=== PATIENT | female | born 1950 | race Caucasian/White ===

== ENCOUNTER → 2016-12-26 | Outpatient (CLI) | payer OTHER | LOC: FIMAGING 13:53 | PROVIDERS: ATTEND Obstetrics & Gynecology | DX: Z12.31 Encounter for screening mammogram for malignant neoplasm of breast (principal); Z80.3 Family history of malignant neoplasm of breast | CPT/HCPCS: G0202 ==

== ENCOUNTER 2017-11-30 21:02 | Emergency (ER) | payer OTHER ==
[2017-11-30] MEDS ORDERED: NS 1,000 ML IV ONE (22:00)
--- NOTE | 2017-11-30 22:02 | EDPHY ---
H & P Stated Complaint: spasm/pain mid back and across abd, x2 hrs Time Seen by Provider: 11/30/17 21:52 HPI/ROS: Chief Complaint: Back pain, abdominal pain HPI: 67-year-old woman began having mid back pain which radiated around to her abdomen about 2-3 hours ago. At worst the pain is a 6/10. She did take some Aleve 2 hr ago is significantly improved. Feels a little bit similar to when she had a gallbladder attack but she has since had a cholecystectomy. No nausea vomiting or diarrhea. No urinary urgency or frequency. She did start on a medication a week ago for overactive bladder. No fevers or chills. She has is worse when she laid down and could not find a position of comfort. Does not hurt to move around. No numbness or weakness. She did sit at her desk writing for several hours this morning. She also did clear up some leads but did not do excessive amounts of bending or lifting. No falls. ROS: 10 systems were reviewed and were negative except those elements noted in the HPI. PMH: Overactive bladder Social History: No smoking, no alcohol, no recreational drug use Family History: non-contributory Physical Exam: Gen: Awake, Alert, No Distress HEENT: Nose: no rhinorrhea Eyes: PERRLA, EOMI Mouth: Moist mucosa Neck: Supple, no JVD Chest: nontender, lungs clear to auscultation Heart: S1, S2 normal, no murmur Abd: Soft, very mild right upper quadrant tenderness without guarding, abdomen otherwise benign Back: Mild right, no midline tenderness Ext: no edema, non-tender Skin: no rash Neuro: CN II-XII intact, Sensation grossly intact, Strength 5/5 in bilateral upper and lower extremities - Personal History Current Tetanus Diphtheria and Acellular Pertussis (TDAP): Unsure Tetanus Vaccine Date: <10 YRS - Medical/Surgical History Hx Asthma: No Hx Chronic Respiratory Disease: No Hx Diabetes: No Hx Cardiac Disease: No Hx Renal Disease: No Hx Cirrhosis: No Hx Alcoholism: No Hx HIV/AIDS: No Hx Splenectomy or Spleen Trauma: No Other PMH: Left hip replacement, gallbladder, right ankle, right forearm - Social History Smoking Status: Never smoked Constitutional: Initial Vital Signs Temperature (C) 36.3 C 11/30/17 21:15 Heart Rate 76 11/30/17 21:15 Respiratory Rate 18 11/30/17 21:15 Blood Pressure 161/91 H 11/30/17 21:15 O2 Sat (%) 97 11/30/17 21:15 O2 Delivery Mode Room Air Allergies/Adverse Reactions: benzoin Allergy (Severe, Verified 11/30/17 21:13) Rash codeine [Codeine] Allergy (Intermediate, Verified 11/30/17 21:13) UPSET STOMACH Sulfa (Sulfonamide Antibiotics) Allergy (Mild, Verified 11/30/17 21:13) Rash Home Medications: Medication Instructions Recorded Estradiol [Estradiol 1 MG (RX)] 1 mg PO DAILY 06/26/12 Glucosam/Chondr/Collagn/Hyalur 1 each PO DAILY 06/26/12 [Glucosamine & Chondroitin Cap] Multivitamins [Tab-A-Moi] 1 each PO DAILY 06/26/12 Naproxen Sodium [Aleve] 2 tab PO DAILY 06/26/12 medroxyPROGESTERone [Provera 2.5 5 mg PO DAILY 06/26/12 mg (RX)] Myrbetriq 11/30/17 Medical Decision Making - Diagnostics Imaging Results: Imaging Impressions Abdomen/Pelvis CT 11/30/17 23:07 Impression: 1. Nonobstructing right nephrolithiasis. 2. Constipation, most prominent in the proximal colon. 3. Diverticulosis without evidence of diverticulitis. 4. Additional findings as above. Findings discussed with Mario Garcia MD 11/30/2017 at 23:26. Attention: This CT examination is specifically designed to evaluate patients who are clinically suspected of having acute obstructive uropathy. This examination does not use radiographic contrast and provides only a limited evaluation of the abdomen, pelvis and retroperitoneum. If there is further clinical suspicion for pathological conditions other than obstructive uropathy, a complete CT evaluation of the abdomen and pelvis utilizing intravenous and enteric contrast should be considered. Imaging: Discussed imaging studies w/ exhibit cleaner Radiologist ED Course/Re-evaluation: 67-year-old woman with back pain and abdominal pain. She has a soft benign abdomen. She does have a mild elevation in her lipase suggestive of a mild pancreatitis. She does not have risk factors for this. Urinalysis did show 1+ blood however CT scan of the abdomen pelvis showed some constipation but otherwise no acute process. Patient's pain has improved dramatically after the Advil that she took. She has required no medicines here. She is otherwise well in appearance. Will discharge with follow-up with primary care physician for further evaluation. - Data Points Laboratory Results: Laboratory Results 11/30/17 22:15 11/30/17 22:15 11/30/17 11/30/17 11/30/17 22:50 22:15 22:15 WBC 10.99 10^3/uL H 10^3/uL (3.80-9.50) RBC 4.27 10^6/uL 10^6/uL (4.18-5.33) Hgb 13.7 g/dL g/dL (12.6-16.3) Hct 40.9 % % (38.0-47.0) MCV 95.8 fL fL (81.5-99.8) MCH 32.1 pg pg (27.9-34.1) MCHC 33.5 g/dL g/dL (32.4-36.7) RDW 12.2 % % (11.5-15.2) Plt Count 247 10^3/uL 10^3/uL (150-400) MPV 9.8 fL fL (8.7-11.7) Neut % (Auto) 61.3 % % (39.3-74.2) Lymph % (Auto) 26.3 % % (15.0-45.0) [place] % (Auto) 7.6 % % (4.5-13.0) Eos % (Auto) 3.9 % % (0.6-7.6) Baso % (Auto) 0.6 % % (0.3-1.7) Nucleat RBC Rel Count 0.0 % % (0.0-0.2) Absolute Neuts (auto) 6.74 10^3/uL H 10^3/uL (1.70-6.50) Absolute Lymphs (auto) 2.89 10^3/uL 10^3/uL (1.00-3.00) Absolute Monos (auto) 0.83 10^3/uL H 10^3/uL (0.30-0.80) Absolute Eos (auto) 0.43 10^3/uL H 10^3/uL (0.03-0.40) Absolute Basos (auto) 0.07 10^3/uL 10^3/uL (0.02-0.10) Absolute Nucleated RBC 0.00 10^3/uL 10^3/uL (0-0.01) Immature Gran % 0.3 % % (0.0-1.1) Immature Gran # 0.03 10^3/uL 10^3/uL (0.00-0.10) Sodium 139 mEq/L mEq/L (135-145) Potassium 3.7 mEq/L mEq/L (3.3-5.0) Chloride 106 mEq/L mEq/L (97-110) Carbon Dioxide 24 mEq/l mEq/l (22-31) Anion Gap 9 mEq/L mEq/L (6-14) BUN 20 mg/dL mg/dL (7-23) Creatinine 0.7 mg/dL mg/dL (0.6-1.0) Estimated GFR > 60 Glucose 119 mg/dL H mg/dL (70-100) Calcium 9.5 mg/dL mg/dL (8.5-10.4) Total Bilirubin 0.3 mg/dL mg/dL (0.1-1.4) AST 30 IU/L IU/L (14-46) ALT 28 IU/L IU/L (9-52) Alkaline Phosphatase 90 IU/L IU/L (38-126) Total Protein 7.2 g/dL g/dL (6.3-8.2) Albumin 3.9 g/dL g/dL (3.5-5.0) Lipase 662 IU/L H IU/L (23-300) Urine Color PALE YELLOW Urine Appearance CLEAR Urine pH 7.0 (5.0-7.5) Ur Specific [place] 1.004 (1.002-1.030) Urine Protein NEGATIVE (NEGATIVE) Urine Ketones NEGATIVE (NEGATIVE) Urine Blood 1+ H (NEGATIVE) Urine Nitrate NEGATIVE (NEGATIVE) Urine Bilirubin NEGATIVE (NEGATIVE) Urine Urobilinogen NEGATIVE EU EU (0.2-1.0) Ur Leukocyte Esterase NEGATIVE (NEGATIVE) Urine RBC 1-3 /hpf /hpf (0-3) Urine WBC 1-3 /hpf /hpf (0-3) Ur Epithelial Cells TRACE /lpf /lpf (NONE-1+) Urine Mucus TRACE /lpf /lpf (NONE-1+) Urine Glucose NEGATIVE (NEGATIVE) Medications Given: Discontinued Medications Sodium Chloride (Ns) 1,000 mls @ 0 mls/hr IV ONCE ONE; Wide Open PRN Reason: Protocol Stop: 11/30/17 22:01 Last Admin: 11/30/17 22:21 Dose: 1,000 mls Departure - Departure Disposition: Home, Routine, Self-Care Clinical Impression: Back pain, Pancreatitis Condition: Good Instructions: Back Pain (ED) Additional Instructions: Take ibuprofen, 600 mg every 8 hr. You may alternate with acetaminophen, 1000 mg every 8 hr. You have a mild elevation in your pancreatic enzymes suggesting a mild pancreatitis. Follow up with primary care physician in 2-3 days for further evaluation. Return to the emergency department for increasing pain, fevers or chills, uncontrolled nausea vomiting, or any other concerns. Referrals: JOSUE OBANDO [Primary Care Provider] - As per Instructions
[2017-11-30 22:29] LABS: PLATELET COUNT 247 10^3/uL (150-400)
[2017-11-30 23:40] VITALS: BP 150/85
== END 2017-12-01 00:11 | disposition home or self-care (01) ==
DX: K85.90 Acute pancreatitis without necrosis or infection, unspecified (principal); N20.0 Calculus of kidney; K59.00 Constipation, unspecified; K57.30 Diverticulosis of large intestine without perforation or abscess without bleeding; N32.81 Overactive bladder; E86.9 Volume depletion, unspecified; Z90.49 Acquired absence of other specified parts of digestive tract

== ENCOUNTER 2018-04-16 05:46 | Observation (INO) | payer OTHER ==
[2018-04-16] MEDS ORDERED: LR 1,000 ML IV ONE (06:08)
[2018-04-16] MEDS ORDERED: BUPIVACAINE/EPI 0.5% 30 ML SDV ONE (06:27)
[2018-04-16] MEDS ORDERED: MIDAZOLAM 2 MG/2 ML VIAL IVP ONE (06:49)
--- NOTE | 2018-04-16 06:49 | PDANEPAE ---
ANE History of Present Illness DaVinci assist sacrocolpopexy ANE Past Medical History - Cardiovascular History Hx Hypertension: No Hx Arrhythmias: No Hx Chest Pain: No Hx Coronary Artery / Peripheral Vascular Disease: No Hx CHF / Valvular Disease: No Hx Palpitations: No - Pulmonary History Hx COPD: No Hx Asthma/Reactive Airway Disease: No Hx Recent Upper Respiratory Infection: No Hx Oxygen in Use at Home: No Hx Sleep Apnea: No Sleep Apnea Screening Result - Last Documented: Negative - Neurologic History Hx Cerebrovascular Accident: No Hx Seizures: No Hx Dementia: No - Endocrine History Hx Diabetes: No - Renal History Hx Renal Disorders: Yes Renal History Comment: bladder prolapse currently. irritable bladder - Liver History Hx Hepatic Disorders: No - Neurological & Psychiatric Hx Hx Neurological and Psychiatric Disorders: No - Cancer History Hx Cancer: No - Congenital Disorder History Hx Congenital Disorders: No - GI History Hx Gastrointestinal Disorders: Yes Gastrointestinal History Comment: constipation after surgery. rectocele - Other Health History Other Health History: wears glasses - Chronic Pain History Chronic Pain: Yes (lower back) - Surgical History Prior Surgeries: 07/29/12 left SHARRI with Gildardo. nyla. right ankle ligament replacement. right forearm ligament repair ANE Review of Systems Review of systems is: negative Review of Systems: - Exercise capacity METS (RN): 4 METS ANE Patient History - Allergies Allergies/Adverse Reactions: benzoin Allergy (Verified 04/03/18 10:24) Rash codeine [Codeine] Allergy (Verified 04/03/18 10:24) UPSET STOMACH Sulfa (Sulfonamide Antibiotics) Allergy (Verified 04/03/18 10:24) Rash - Home Medications Home medications: home medication list seen and reviewed Home Medications: Estradiol [Estradiol 1 MG (RX)] 1 mg PO DAILY 06/26/12 [Last Taken 04/16/18] Cholecalciferol Vit D3 [Vitamin D3 (*)] 1,000 units PO DAILY 03/27/18 [Last Taken 04/09/18] Docusate Sodium [Colace 100 MG (*)] 100 mg PO DAILY 03/27/18 [Last Taken ] Estrogens,Conjugated [Premarin Vaginal (*)] 1 yuliana VG .2WK/WEEK 03/27/18 [Last Taken 04/16/18] Ferrous Sulfate [Ferrous Sulf 325 MG (*)] 325 mg PO DAILY 03/27/18 [Last Taken 04/09/18] Fluticasone Nasal [Flonase Nasal [employer] (RX)] 2 sprays EACHNARE DAILY PRN [Last Taken 04/15/18] Herbals/Supplements -Info Only 1 ea PO DAILY 03/27/18 [Last Taken 04/09/18] Naproxen Sodium [Aleve 220 MG (*)] 440 mg PO DAILY PRN 03/27/18 [Last Taken ] Progesterone Cmpd 100mg Caps 100 mg PO DAILY 03/27/18 [Last Taken 04/16/18] Myrbetriq 04/16/18 [Last Taken 04/16/18] - NPO status NPO Since - Liquids (Date): 04/16/18 NPO Since - Liquids (Time): 04:45 NPO Since - Solids (Date): 04/15/18 NPO Since - Solids (Time): 20:00 - Anes Hx Anes Hx: post operative nausea - Smoking Hx Smoking Status: Never smoked - Family Anes Hx Family Anes Hx: none Family Hx Anesthesia Complications: none ANE Labs/Vital Signs - Vital Signs Vital Signs: reviewed preoperatively; see RN documention for details Blood Pressure: 146/85 Heart Rate: 82 Respiratory Rate: 15 O2 Sat (%): 96 Height: 167.64 cm Weight: 62.596 kg ANE Physical Exam - Airway Neck exam: FROM Mallampati Score: Class 1 Mouth exam: normal dental/mouth exam - Pulmonary Pulmonary: no respiratory distress - Cardiovascular Cardiovascular: regular rate and rhythym - ASA Status ASA Status: I ANE Anesthesia Plan Anesthesia Plan: general endotracheal anesthesia
--- NOTE | 2018-04-16 07:03 | PDHPUP ---
History & Physical Update H&P update statement: This history and physical update is based on an assessment of the patient which was completed after admission or registration (within 24 hours), but prior to the surgery/procedure. H&P update: H&P reviewed & patient examined, no change in patient's condition since H&P completed
[2018-04-16] MEDS ORDERED: MIDAZOLAM 2 MG/2 ML VIAL ONE (07:04)
[2018-04-16] MEDS ORDERED: ROCURONIUM 50 MG/5 ML VIAL ONE (07:09)
[2018-04-16] MEDS ORDERED: DEXAMETHASONE 4 MG/ML VIAL ONE (07:09)
[2018-04-16] MEDS ORDERED: ONDANSETRON 4 MG/2 ML VIAL ONE ×2 (07:09→10:10)
[2018-04-16] MEDS ORDERED: LIDOCAINE 2% 100 MG/5 ML SYR ONE (07:09)
[2018-04-16] MEDS ORDERED: PROPOFOL 200 MG/20 ML VIAL ONE (07:09)
[2018-04-16] MEDS ORDERED: fentaNYL 250 MCG/5 ML INJ ONE (07:09)
[2018-04-16] MEDS ORDERED: SUGAMMADEX SODIUM 200 MG/2 ML VIAL IVP ONE (07:09)
[2018-04-16] MEDS ORDERED: ceFAZolin 2 GM/DEXTROSE 100 ML IV ONE (07:16)
[2018-04-16] MEDS ORDERED: ceFAZolin 1 GM VIAL ONE ×2 (07:35)
[2018-04-16] MEDS ORDERED: NALOXONE HCL 0.4 MG/ML INJ IVP PRN (08:23)
[2018-04-16] MEDS ORDERED: MEPERIDINE 25 MG/0.5 ML AMP IVP PRN (08:23)
[2018-04-16] MEDS ORDERED: LABETALOL HCL 5 MG/ML 20 ML MDV IVP PRN (08:23)
[2018-04-16] MEDS ORDERED: fentaNYL 100 MCG/2 ML INJ IVP PRN (08:23)
[2018-04-16] MEDS ORDERED: ACETAMINOPHEN 500 MG TAB PO PRN (08:23)
[2018-04-16] MEDS ORDERED: PROMETHAZINE HCL 25 MG/ML INJ IVP PRN ×2 (08:23→09:37)
[2018-04-16] MEDS ORDERED: HYDROCODONE/APAP 5/325 TAB PO PRN ×2 (08:23→09:37)
[2018-04-16] MEDS ORDERED: oxyCODONE IR 5 MG TAB PO PRN (08:23)
[2018-04-16] MEDS ORDERED: HYDROmorphONE/DILAUDID 2 MG/ML INJ IVP PRN (08:23)
--- NOTE | 2018-04-16 08:23 | POSTANESTH ---
Post Anesthetic Evaluation Cardiovascular Status: Normal, Stable, Similar to Pre-Op Cond Respiratory Status: Normal, Stable, Similar to Pre-op Cond. Level of Consciousness/Mental Status: Can Participate in Eval, Mildly Sleepy, Arousable Pain Control: Adequate, Prn Tx Ordered Nausea/Vomiting Control: Adequate, Prn Tx Ordered Complications Possibly Related to Anesthesia: None Noted
[2018-04-16] MEDS ORDERED: fentaNYL 100 MCG/2 ML INJ ONE ×2 (09:27→10:36)
[2018-04-16] MEDS ORDERED: HYDROmorphONE/DILAUDID 1 MG/ML INJ IVP PRN (09:37)
[2018-04-16] MEDS ORDERED: OXYCODONE/APAP 5/325 TAB PO PRN (09:37)
[2018-04-16] MEDS ORDERED: ONDANSETRON DISINTEGRATING 4 MG TAB PO PRN (09:37)
[2018-04-16] MEDS ORDERED: LR 1,000 ML IV SCH (10:00)
[2018-04-16] MEDS: ONDANSETRON 4 MG/2 ML VIAL IVP PRN ×2 (11:58→16:47)
--- NOTE | 2018-04-16 11:58 | GOP ---
[f rep st] OPERATIVE REPORT DATE OF OPERATION: 04/16/2018 SURGEON: Demond Rowe MD HEDIS COORDINATOR: Nikki Fernandez CFA. ANESTHESIA: General. PREOPERATIVE DIAGNOSIS: 1. Cystocele. 2. Rectocele. 3. Uterine prolapse. POSTOPERATIVE DIAGNOSIS: 1. Cystocele. 2. Rectocele. 3. Uterine prolapse. PROCEDURE PERFORMED: 1. Robotic-assisted laparoscopic hysterectomy, bilateral salpingo-oophorectomy. 2. Sacral colpopexy with mesh. 3. Repair of cystocele and rectocele. 4. Cystoscopy. FINDINGS: SPECIMENS: Uterus, bilateral tubes and ovaries. ESTIMATED BLOOD LOSS: Scant. DESCRIPTION OF PROCEDURE: Cristel was taken to the operating room. She was identified. General ane sthesia was administered and found to be adequate. She was placed in the lithotomy position and prep ared and draped in normal sterile fashion. A Gonzalez catheter was placed in her bladder. An 8 mm infraumbilical incision was made with a scalpel. The Veress needle, CO2 gas flowing was adva nced into the peritoneal cavity. The abdomen was then insufflated with carbon dioxide gas. The 8 mm trocar followed by the laparoscope were then inserted. The upper abdomen was unremarkable. Two lat eral ports were placed on either side under direct visualization. She then was placed in Trendelenbu rg position and the da Gabrielle robot docked on the left side. The instruments were brought into the ab dominal cavity under direct visualization. The left round ligament was divided. The anterior leaf of the broad ligament was incised toward the bifurcation of the left common iliac vessels. A window was created posteriorly anterior to the urete r to skeletonize the infundibulopelvic vessels. They were then cauterized and transected. The anter ior broad ligament was then incised over the left uterine vessels and across the cervix. The bladder gently dissected off the cervix and upper vagina. The left uterine vasculature was then cauterized and transected. The exact same procedure was performed on the patient's right side. The uterus was then bivalved to aid in removal through the umbilicus. The uterus and upper 3/4 of the cervix were a mputated from the lower 1/4 of the cervix with the hot roamn. The specimen was placed in the right upper quadrant for later removal. The Colpo-Probe was placed in the vagina. The bladder was further dissected off the anterior vaginal wall down to the level of the bladder neck. The rectovaginal space was then entered and the rectum dissected off the posterior vaginal wall down to the level of the perineal body. Measurements were t hen obtained and the mesh trimmed to size. The sigmoid colon was retracted laterally. The peritoneum over the sacral promontory was incised and the fat pad gently dissected off the anterior longitudinal ligament. The mesh was brought into the abdominal cavity. Three sutures of 4-0 [place] were used to attach the distal posterior mesh to the perineal body. Two additional rows of [place] sutures were placed posteriorly. Three rows were pl aced anteriorly to suture the anterior mesh down to the bladder neck and laterally to the paravaginal tissue. The Colpo-Probe was removed. The sacral arm of the mesh was placed over the promontory and the tension adjusted. I then scrubbed back into the case to examine the vagina. The tension was fu rther adjusted to resolve the cystocele and rectocele without undue tension on the vagina. Two sutur es of 2-0 [place] were used to attach the sacral arm of the mesh to the anterior longitudinal ligame nt at the level of the upper first sacral vertebral body below the intervertebral disk space. The pe ritoneum was then closed over the entire mesh with 3-0 V-Loc suture. The robot was then undocked. T he specimen was removed through the umbilicus. The fascia was closed with 0 Vicryl; the skin with 4- 0 Monocryl. Cystoscopy was then performed. Both ureters had vigorous jets of urine. There was no evidence of bl adder, nor urethral injury seen. There was no suture, nor mesh within the bladder nor urethra. No o bvious pathology was seen. Vaginal packing was then placed. Anesthesia was reversed and the patient was taken to the PACU awake, in stable condition. COMPLICATIONS: None. DISPOSITION: Patient stable to PACU. /[id number]/MODL
[2018-04-16] MEDS: KETOROLAC 15 MG/1 ML SDV IVP SCH ×2 (12:06→18:36)
[2018-04-16] MEDS: SIMETHICONE 80 MG TAB CHEW PO SCH ×2 (18:37→22:11)
[2018-04-16] MEDS: DOCUSATE SODIUM 100 MG CAP PO SCH (22:11)
[2018-04-17] MEDS: SIMETHICONE 80 MG TAB CHEW PO SCH (00:06)
[2018-04-17] MEDS: KETOROLAC 15 MG/1 ML SDV IVP SCH ×2 (00:39→06:16)
[2018-04-17 06:09] LABS: PLATELET COUNT 238 10^3/uL (150-400)
[2018-04-17 09:01] VITALS: BP 132/77
[2018-04-17] MEDS: DOCUSATE SODIUM 100 MG CAP PO SCH (10:23)
--- NOTE | 2018-04-17 10:41 | GDS ---
[f rep st] DISCHARGE SUMMARY DISCHARGE DIAGNOSIS: Uterovaginal prolapse. PROCEDURES: 1. Robotic-assisted laparoscopic hysterectomy, bilateral salpingo-oophorectomy. 2. Sacral colpopexy with mesh. 3. Repair of cystocele and rectocele. 4. Cystoscopy. HOSPITAL COURSE/HISTORY: The patient is a 68-year-old female with symptomatic uterovaginal prolapse. She was taken to the operating room on 04/16/2018, where she underwent the above-mentioned procedur es, which she tolerated well without complications. Her postoperative course was uneventful. The morning after surgery, she was ambulating, voiding, and tolerating a general diet. She was discharged home on postoperative day #1 in good condition. She was to take Tylenol and ibuprofen for pain. She was given a prescription for [place] if needed for str onger pain. She is to follow up in the office 2 weeks after discharge. /[id number]/MODL
== END 2018-04-17 10:35 | disposition home or self-care (01) ==
LOC: F3E 05:46 → FOB 11:44
PROVIDERS: ADMIT Obstetrics & Gynecology; ATTEND Obstetrics & Gynecology
DX: N81.2 Incomplete uterovaginal prolapse (principal); D25.1 Intramural leiomyoma of uterus; N80.0 Endometriosis of uterus; N32.81 Overactive bladder; Z96.642 Presence of left artificial hip joint
CPT/HCPCS: 57423; 57425; 58571; C1763; G0378; J0690; J1100; J1885; J2001; J2250; J2405; J2704; J3010

== ENCOUNTER 2018-07-25 09:24 | Emergency (ER) | payer OTHER | END 2018-07-25 11:14 | disposition home or self-care (01) ==

== ENCOUNTER → 2018-08-11 | Outpatient (CLI) | payer OTHER | LOC: FIMAGING 13:04 ==